=== PATIENT | male | born 1985 | race American Indian/Alaskan Native ===

== ENCOUNTER 2017-10-25 03:18 | Emergency (ER) | payer SELFPAY ==
[2017-10-25] MEDS ORDERED: CLEOCIN 900 MG/50 mL 900 MG/50 ML BAG IV ONE (03:35)
--- NOTE | 2017-10-25 03:40 | Emergency Department Report ---
<SARAH CAMACHO - Last Filed: 10/25/17 08:09> ED General Adult HPI - General Chief complaint: Fever Stated complaint: TONGUE SWELLING Time Seen by Provider: 10/25/17 03:30 - Related Data Previous Rx's Medication Instructions Recorded Last Taken Type Amoxicillin [Amoxicillin TAB] 875 mg PO BID #20 tablet 10/25/17 Unknown Rx Prednisone [predniSONE 10 mg 10 mg PO .TAPER #1 tab.ds.pk 10/25/17 Unknown Rx (6-Day Pack, 21 Tabs)] Allergies Allergy/AdvReac Type Severity Reaction Status Date / Time No Known Allergies Allergy Verified 10/25/17 08:05 ED Review of Systems ROS: Stated complaint: TONGUE SWELLING Other details as noted in HPI ED Past Medical Hx - Medications Home Medications: Home Medications Medication Instructions Recorded Confirmed Last Taken Type Amoxicillin [Amoxicillin TAB] 875 mg PO BID #20 tablet 10/25/17 Unknown Rx Prednisone [predniSONE 10 mg 10 mg PO .TAPER #1 tab.ds.pk 10/25/17 Unknown Rx (6-Day Pack, 21 Tabs)] ED Course Vital Signs 10/25/17 10/25/17 10/25/17 03:21 06:02 06:54 Temperature 100.3 F H 98.3 F Pulse Rate 92 H 74 Respiratory 22 16 Rate Blood Pressure 122/78 Blood Pressure 122/78 127/61 [Left] O2 Sat by Pulse 100 100 100 Oximetry ED Medical Decision Making - Lab Data Result diagrams: 10/25/17 03:47 10/25/17 03:47 - Medical Decision Making CT of the neck reviewed and shows that the patient has enlarged tonsils. No signs of retropharyngeal abscess. Discussed results the patient. Patient given IV antibiotics and Decadron. Critical care attestation.: If time is entered above; I have spent that time in minutes in the direct care of this critically ill patient, excluding procedure time. ED Disposition Clinical Impression: Tonsillitis Disposition: -01 TO HOME OR SELFCARE Is pt being admited?: No Does the pt Need Aspirin: No Condition: Stable Instructions: Tonsillitis (ED) Additional Instructions: Return if symptoms become worse Prescriptions: Amoxicillin [Amoxicillin TAB] 875 mg PO BID #20 tablet Prednisone [predniSONE 10 mg (6-Day Pack, 21 Tabs)] 10 mg PO .TAPER #1 tab.ds.pk Referrals: PRIMARY CARE, [Primary Care Provider] - 3-5 Days PRANAV WEINSTEIN MD [Staff Physician] - 3-5 Days <DRAKE TOLBERT - Last Filed: 10/25/17 20:12> ED General Adult HPI - General Source: patient Mode of arrival: Stretcher Limitations: No Limitations - History of Present Illness Initial comments: Patient is 32 years old male with history of high blood pressure on propranolol. Patient brought into the ER by EMS for evaluation of sore throats and difficulty swallowing since yesterday. Patient stated that his symptoms started with sore throat and cough and progress to difficulty swallowing. He also had a low-grade fever. Patient denied any nausea or vomiting. No difficulty breathing or shortness of breath. Severity scale (0 -10): 10 ED Review of Systems Comment: All other systems reviewed and negative Constitutional: fever. denies: chills ENT: throat pain. denies: hearing loss, congestion Respiratory: cough. denies: orthopnea Cardiovascular: denies: chest pain, palpitations, dyspnea on exertion, orthopnea , edema, syncope Gastrointestinal: denies: abdominal pain, nausea, vomiting, diarrhea, constipation, hematemesis, melena, hematochezia Neurological: denies: headache, weakness, numbness, paresthesias, confusion, abnormal gait ED Past Medical Hx - Past Medical History Hx Hypertension: Yes Hx Psychiatric Treatment: Yes Hx Asthma: Yes - Surgical History Past Surgical History?: No - Social History Smoking Status: Current Every Day Smoker Substance Use Type: Alcohol, Marijuana ED Physical Exam - General Limitations: No Limitations General appearance: alert, in no apparent distress, anxious - Head Head exam: Present: atraumatic, normocephalic, normal inspection - Eye Eye exam: Present: normal appearance, PERRL - ENT ENT exam: Present: mucous membranes moist, other (pharyngeal erythema) - Neck Neck exam: Present: normal inspection, full ROM, lymphadenopathy. Absent: tenderness, meningismus, thyromegaly - Respiratory Respiratory exam: Present: normal lung sounds bilaterally. Absent: respiratory distress, wheezes, rales, rhonchi, stridor, chest wall tenderness, accessory muscle use, decreased breath sounds, prolonged expiratory - Cardiovascular Cardiovascular Exam: Present: regular rate, normal rhythm, normal heart sounds - GI/Abdominal GI/Abdominal exam: Present: soft, normal bowel sounds. Absent: distended, tenderness, guarding, rebound, rigid, organomegaly, mass, bruit, pulsatile mass , hernia - Extremities Exam Extremities exam: Present: normal inspection, full ROM, normal capillary refill - Back Exam Back exam: Present: normal inspection. Absent: full ROM, tenderness, CVA tenderness (R), CVA tenderness (L), muscle spasm, paraspinal tenderness, vertebral tenderness - Neurological Exam Neurological exam: Present: alert, oriented X3, CN II-XII intact, normal gait - Skin Skin exam: Present: warm, intact, normal color ED Course - Reevaluation(s) Reevaluation #1: 10/25/17 20:11 patient care transferred to Dr Camacho at 06:15 AM. ED Medical Decision Making - Lab Data Result diagrams: 10/25/17 03:47 10/25/17 03:47
[2017-10-25] MEDS ORDERED: TYLENOL PO ONE (03:41)
[2017-10-25 04:23] LABS: Hematocrit 43.9 % (35.5-45.6); Hemoglobin 14.6 gm/dl (11.8-15.2); Mean Corpuscular HGB Conc 33 % (32-34); Mean Corpuscular Hemoglobin 29 pg (28-32); Mean Corpuscular Volume 89 fl (84-94); Platelet Count 222 K/mm3 (140-440); Red Blood Count 4.95 M/mm3 (3.65-5.03); Red Cell Distribution Width 14.2 % (13.2-15.2)
[2017-10-25 05:47] LABS: Alanine Aminotransferase 26 units/L (7-56); BUN/Creatinine Ratio 6; Blood Urea Nitrogen 6 mg/dL (9-20); Calcium 8.8 mg/dL (8.4-10.2); Hemolysis Index 7
--- NOTE | 2017-10-25 06:31 | Cat Scan Report ---
FINAL REPORT EXAM: CT NECK W CON HISTORY: difficulty swallowing. Rule out abscess TECHNIQUE: Routine axial imaging was obtained of the soft tissues of the neck following the intravenous injection of 100 cc of Omnipaque 300. Sagittal and coronal reconstructions were reviewed. FINDINGS: The tonsils are prominent in size bilaterally. There is no evidence of inflammatory changes though. The airway otherwise is unremarkable. The thyroid gland appears normal. The lung apices are clear. The retropharyngeal space appears normal. The epiglottis and subglottic airway appear normal. There are multiple benign-appearing lymph nodes in the submandibular and internal jugular chains bilaterally. Along the skullbase the visualized sinuses are clear. The mastoid air cells are well pneumatized. The skeletal structures are well-maintained IMPRESSION: Enlarged tonsils noted bilaterally. No evidence of inflammatory changes. No evidence of airway obstruction or acute process.
[2017-10-25 06:55] VITALS: BP 127/61
[2017-10-25 07:30] LABS: Basophils % (Manual) 0 % (0.0-1.8); Eosinophils % (Manual) 0 % (0.0-4.3); RBC Morphology Normal; Total Cells Counted 100
[2017-10-25] MEDS ORDERED: DECADRON ONE (08:10)
[2017-10-25] MEDS ORDERED: DECADRON 20 MG in NACL 0.9% 50 ML IV ONE (08:30)
== END 2017-10-25 08:30 | disposition home or self-care (01) ==
LOC: ED 03:18
DX: J03.90 Acute tonsillitis, unspecified (principal); I10 Essential (primary) hypertension; F17.200 Nicotine dependence, unspecified, uncomplicated; F12.10 Cannabis abuse, uncomplicated
CPT/HCPCS: 36415; 70491; 80053; 85007; 85025; 87040; 87430; 96365; 96367; 99284; J1100; Q9967